=== PATIENT | female | born 1985 | race Caucasian/White ===

== ENCOUNTER 2018-02-23 09:59 | Emergency (ER) | END 2018-02-23 12:30 | disposition home or self-care (01) ==

== ENCOUNTER 2019-02-14 18:54 | Emergency (ER) | payer MEDICAID ==
[~2019-02-14] VITALS: Ht 172.7 cm; Wt 76.4 kg
[~2019-02-14 18:54] MED LIST: IBUP-1561 PO
[2019-02-14 19:03] VITALS: BP 118/60; PULSE 91; RESP 18; Ht 172.7 cm; Wt 76.4 kg
[2019-02-14] MEDS ORDERED: ACETAMINOPHEN 325 MG TAB PO STA (20:21)
[2019-02-14] MEDS ORDERED: ACET-141 PO (21:59)
--- NOTE | 2019-02-14 22:00 | ERD ---
ER Documentation Chief Complaint Chief Complaint vaginal bleeding x 30 minutes, states 6 weeks HPI 34-year-old female presents for vaginal bleeding times 30 minutes prior to arrival. She is currently about 5-6 weeks . She has seen her DOCTOR OF NURSING PRACTICE for the current however she states that she has had an ultrasound done yet. She is A2. She also states that she has some cramping pain in the pelvic area rated 7 out of 10. Denies chest pain or shortness of breath, denies abdominal pain, nausea, vomiting. ROS All systems reviewed and are negative except as per history of present illness. Medications Home Meds Active Scripts Acetaminophen* (Acetaminophen*) 500 MG Extra Strength Tablet, 500 MG PO Q4H PRN for PAIN AND OR ELEVATED TEMP, #30 TAB Prov:LUCY LORENZO DO 02/14/19 Ibuprofen* (Motrin*) 400 Mg Tab, 400 MG PO Q8 for 5 Days, #15 TAB Prov:KENZIE HANSEN MD 02/23/18 Allergies Allergies: Coded Allergies: No Known Allergy (Unverified , 02/23/18) PMhx/Soc Medical and Surgical Hx: pt denies Medical Hx History of Surgery: Yes (csection) Hx Alcohol Use: No Hx Substance Use: No Hx Tobacco Use: No Physical Exam Vitals Vital Signs Date Temp Pulse Resp B/P (MAP) Pulse Ox O2 O2 Flow FiO2 Time Delivery Rate 02/14/19 98.5 91 18 118/60 100 19:03 (79) Physical Exam Const: No acute distress Resp: Clear to auscultation bilaterally Cardio: Regular rate and rhythm, no murmurs Abd: Soft, non distended. Normal bowel sounds, mild pelvic tenderness to palpation midline, no McBurney's point tenderness, no Harry sign, no rebound or guarding noted Skin: No petechiae or rashes Back: No midline or flank tenderness Ext: No cyanosis, or edema Neur: Awake and alert Psych: Normal Mood and Affect Result Diagram: 02/14/192033 Results 24 hrs Laboratory Tests Test 02/14/19 20:34 White Blood Count 9.0 10^3/ul Red Blood Count 4.71 10^6/ul Hemoglobin 11.0 g/dl Hematocrit 34.8 % Mean Corpuscular Volume 73.9 fl Mean Corpuscular Hemoglobin 23.4 pg Mean Corpuscular Hemoglobin Concent 31.6 g/dl Red Cell Distribution Width 15.3 % Platelet Count 327 10^3/UL Mean Platelet Volume 8.6 fl Immature Granulocytes % 0.600 % Neutrophils % 71.1 % Lymphocytes % 22.0 % Monocytes % 5.2 % Eosinophils % 0.9 % Basophils % 0.2 % Nucleated Red Blood Cells % 0.0 /100WBC Immature Granulocytes # 0.050 10^3/ul Neutrophils # 6.4 10^3/ul Lymphocytes # 2.0 10^3/ul Monocytes # 0.5 10^3/ul Eosinophils # 0.1 10^3/ul Basophils # 0.0 10^3/ul Nucleated Red Blood Cells # 0.0 10^3/ul Urine Color COLORLESS Urine Clarity CLEAR Urine pH 6.0 Urine Specific [place] 1.001 Urine Ketones NEGATIVE mg/dL Urine Nitrite NEGATIVE mg/dL Urine Bilirubin NEGATIVE mg/dL Urine Urobilinogen NEGATIVE mg/dL Urine Leukocyte Esterase NEGATIVE Irish/ul Urine Microscopic RBC 0 /HPF Urine Microscopic WBC 0 /HPF Urine Bacteria FEW /HPF Urine Hemoglobin 3+ mg/dL Urine Glucose NEGATIVE mg/dL Urine Total Protein NEGATIVE mg/dl Beta HCG, Quantitative 12917.0 mIU/ml Current Medications Medications Dose Sig/Sj Start Time Status Last (Trade) Ordered Route PRN Stop Time Admin Dose Reason Admin 650 mg ONCE STAT 02/14/19 DC 02/14/19 Acetaminophen PO 20:21 02/14/19 20:32 (Tylenol 20:25 Tab) Procedures/MDM Medical Decision Making: Differential diagnosis includes but not limited to spontaneous , ovarian cyst, uterine fibroid, ectopic . Patient appeared well on physical examination. CBC showed no severe anemia, no elevated WBC to suggest systemic infection. UA showed few bacteria Beta hCG level was 6[address] Pelvic ultrasound showed single live intrauterine about 6 weeks gestation, heart rate 154 Patient advised she will need to return to ER in 48 hours for repeat beta-hCG level. Patient also advised to follow with DOCTOR OF NURSING PRACTICE as soon as possible. Patient advised to follow up with PCP in 1-2 days. Patient advised to return to ED for new or worsening symptoms. Patient stable on discharge from the ED. Disclaimer: Inadvertent spelling and grammatical errors are likely due to EHR/dictation software use and do not reflect on the overall quality of patient care. Also, please note that the electronic time recorded on this note does not necessarily reflect the actual time of the patient encounter. Departure Diagnosis: Primary Impression: Vaginal bleeding in patient at less than 20 weeks ges... Condition: Fair Patient Instructions: Bleeding During Early Referrals: [facility] YOU HAVE RECEIVED A MEDICAL SCREENING EXAM AND THE RESULTS INDICATE THAT YOU DO NOT HAVE A CONDITION THAT REQUIRES URGENT TREATMENT IN THE EMERGENCY DEPARTMENT. FURTHER EVALUATION AND TREATMENT OF YOUR CONDITION CAN WAIT UNTIL YOU ARE SEEN IN YOUR DOCTORS OFFICE WITHIN THE NEXT 1-2 DAYS. IT IS YOUR RESPONSIBILITY TO M [place] AN APPOINTMENT FOR FOLOW-UP CARE. IF YOU HAVE A PRIMARY DOCTOR --you should call your primary doctor and schedule an appointment IF YOU DO NOT HAVE A PRIMARY DOCTOR YOU CAN CALL OUR PHYSICIAN REFERRAL HOTLINE AT IF YOU CAN NOT AFFORD TO SEE A PHYSICIAN YOU CAN CHOSE FROM THE FOLLOWING [facility] [employer] [address] [facility] [facility] [address] [facility] [address] [facility] [address] [facility] [address] [facility]. [facility]. [address] Additional Instructions: Call your primary care doctor TOMORROW for an appointment during the next 1-2 days.See the doctor sooner or return here if your condition worsens before your appointment time. Return in ER in 48 hours for repeat beta HCG level. Make an appointment to see DOCTOR OF NURSING PRACTICE as soon as possible. LUCY LORENZO DO Feb 14, 2019 22:00
== END 2019-02-14 22:12 | disposition home or self-care (01) ==
LOC: FTE 18:54
DX: O20.9 Hemorrhage in early pregnancy, unspecified (principal); R10.2 Pelvic and perineal pain; Z3A.01 Less than 8 weeks gestation of pregnancy
CPT/HCPCS: 76801; 76817; 81001; 84702; 85025; 86900; 86901; Z7610; 36415

== ENCOUNTER 2019-02-17 07:54 | Emergency (ER) | payer MEDICAID ==
[~2019-02-17] VITALS: Ht 172.7 cm; Wt 76.8 kg
[~2019-02-17 07:54] MED LIST changes: +ACET-141 PO
[2019-02-17 07:58] VITALS: BP 108/58; PULSE 76; RESP 18; Ht 172.7 cm; Wt 76.8 kg
--- NOTE | 2019-02-17 11:35 | ERD ---
ER Documentation Chief Complaint Chief Complaint repeat blood wk, seen sunday, 6 wks HPI 34-year-old female presenting for repeat blood work for vaginal bleeding she had experienced 4 days ago. Patient states the bleeding has now resolved and she is having no severe pelvic pain. Patient is about 6 weeks with her last LNMP being December 31. . [facility] Denies medical problems. NKDA. Surgical history . Social history denies ROS All systems reviewed and are negative except as per history of present illness. Medications Home Meds Active Scripts Acetaminophen* (Acetaminophen*) 500 MG Extra Strength Tablet, 500 MG PO Q4H PRN for PAIN AND OR ELEVATED TEMP, #30 TAB Prov:LUCY LORENZO DO 02/14/19 Ibuprofen* (Motrin*) 400 Mg Tab, 400 MG PO Q8 for 5 Days, #15 TAB Prov:KENZIE HANSEN MD 02/23/18 Allergies Allergies: Coded Allergies: No Known Allergy (Unverified , 02/23/18) PMhx/Soc History of Surgery: Yes (csection) Hx Alcohol Use: No Hx Substance Use: No Hx Tobacco Use: No Smoking Status: Never smoker FmHx Family History: No diabetes, No coronary disease, No other Physical Exam Vitals Vital Signs Date Temp Pulse Resp B/P (MAP) Pulse Ox O2 O2 Flow FiO2 Time Delivery Rate 02/17/19 97.3 76 18 108/58 100 07:58 (75) Physical Exam GENERAL: The patient is well-appearing, well-nourished, in no acute distress HEENT: Atraumatic. Conjunctivae are pink. Pupils equal, round, and reactive to light. There is no scleral icterus. Tympanic membranes clear bilaterally. Oropharynx clear. NECK: C-spine is soft and supple. There is no meningismus. There is no cervical lymphadenopathy. CHEST: Clear to auscultation bilaterally. There are no rales, wheezes or rhonchi. HEART: Regular rate and rhythm. No murmurs, clicks, rubs or gallops. ABDOMEN:Soft, nontender and nondistended. Good bowel sounds. No rebound or guarding. No gross peritonitis. No gross organomegaly or masses. Result Diagram: 02/17/19 0810 Results 24 hrs Laboratory Tests Test 02/17/19 08:10 02/17/19 08:15 White Blood Count 6.6 10^3/ul Red Blood Count 4.74 10^6/ul Hemoglobin 11.0 g/dl Hematocrit 35.2 % Mean Corpuscular Volume 74.3 fl Mean Corpuscular Hemoglobin 23.2 pg Mean Corpuscular Hemoglobin Concent 31.3 g/dl Red Cell Distribution Width 15.7 % Platelet Count 338 10^3/UL Mean Platelet Volume 9.2 fl Immature Granulocytes % 0.300 % Neutrophils % 60.5 % Lymphocytes % 30.8 % Monocytes % 6.4 % Eosinophils % 1.5 % Basophils % 0.5 % Nucleated Red Blood Cells % 0.0 /100WBC Immature Granulocytes # 0.020 10^3/ul Neutrophils # 4.0 10^3/ul Lymphocytes # 2.0 10^3/ul Monocytes # 0.4 10^3/ul Eosinophils # 0.1 10^3/ul Basophils # 0.0 10^3/ul Nucleated Red Blood Cells # 0.0 10^3/ul Beta HCG, Quantitative 26211.0 mIU/ml Urine Color STRAW Urine Clarity CLEAR Urine pH 6.0 Urine Specific [place] 1.002 Urine Ketones NEGATIVE mg/dL Urine Nitrite NEGATIVE mg/dL Urine Bilirubin NEGATIVE mg/dL Urine Urobilinogen NEGATIVE mg/dL Urine Leukocyte Esterase NEGATIVE Irish/ul Urine Microscopic RBC 1 /HPF Urine Microscopic WBC 0 /HPF Urine Bacteria FEW /HPF Urine Hemoglobin 1+ mg/dL Urine Glucose NEGATIVE mg/dL Urine Total Protein NEGATIVE mg/dl Procedures/MDM DIAGNOSTIC IMAGING REPORT Patient: ADIN HOOKS : 1985 Age: 34 Sex: F MR #: [id number] DOS: 02/17/19 0810 Ordering MD: GENESIS CHAMBERS PA-C Location: [facility] Room/Bed: PROCEDURE: US OB. CLINICAL INDICATION: Vaginal bleeding TECHNIQUE: Transabdominal views of the pelvis are available for review. COMPARISON: 02/14/2019 FINDINGS: There is a single intrauterine gestation with the crown-rump length measuring 0.9 cm, corresponding to a gestational age of 6 weeks and 6 days. The heart rate is noted at 132 bpm. The ovaries are normal in size and echogenicity. Normal Doppler flow is identified in both ovaries. The right ovary measures 3.6 x 2.5 x 2.4 cm. The left ovary measures 2.8 x 1.6 x 1.9 cm. There is no free fluid. RPTAT: AA IMPRESSION: Single live intrauterine with an estimated gestational age of 6 weeks and 6 days, based on ultrasound measurements. PRATIMA based on ultrasound measurements is 10/07/19. MDM: 34-year-old female presenting for repeat visit of vaginal bleeding. Blood work and ultrasound are within normal limits. Patient is discharged with strict pelvic precautions and recommended to follow-up with her primary [facility]TER. Patient is told if pelvic bleeding or pain restarts to return to the ER. I have low suspicion for ectopic . Patient is hemoglobin is stable. No signs of infection in the urine. Patient does not require RhoGam injection. Patient is discharged with strict ER precautions. All questions answered at discharge Departure Diagnosis: Primary Impression: First trimester Condition: Stable Patient Instructions: : Common Questions Referrals: [facility] [address] [facility] [address] [place] [address]ABUSLEME DANIEL [address] [place] [address] [address] [place] [address] [place] [address] [address]ER, [facility] [address] [facility], [address] [address] [address] [facility] [address] [place] [address] [facility] [address] [place] [address] [phone] [facility] [id number] - AIDAN HERNANDEZ [address], [facility] [address] [address], [place] [address] [facility]. [address], [facility] [id number] [address] [place] [address] Additional Instructions: FOLLOW UP WITH YOUR PRIMARY CARE PHYSICIAN TOMORROW.Return to this facility if you are not improving as expected. TIGIST CHAMBERS PA-C Feb 17, 2019 11:35
== END 2019-02-17 09:55 | disposition home or self-care (01) ==
LOC: FTE 07:54
DX: O20.9 Hemorrhage in early pregnancy, unspecified (principal); Z3A.01 Less than 8 weeks gestation of pregnancy
CPT/HCPCS: 36415; 76801; 81001; 84702; 85025; Z7502